=== PATIENT | female | born 1955 | race African-American/Black ===

== ENCOUNTER → 2023-10-10 09:37 | Outpatient (REF) | payer BC, SELFPAY | LOC: WDC 09:37 | PROVIDERS: ATTENDING PHYSICIAN Nurse Practitioner Family | DX: N64.4 Mastodynia (principal) | CPT/HCPCS: 76642 ==

== ENCOUNTER → 2023-11-10 12:36 | Outpatient (REF) | payer BC, SELFPAY | LOC: WDC 12:36 | PROVIDERS: ATTENDING PHYSICIAN Family Medicine | DX: Z12.31 Encounter for screening mammogram for malignant neoplasm of breast (principal) | CPT/HCPCS: 77063; 77067 ==

== ENCOUNTER → 2024-06-22 08:56 | Outpatient (REF) | payer MEDICARE, SELFPAY | LOC: HWRCS 08:56 | PROVIDERS: ATTENDING PHYSICIAN Internal Medicine Cardiovascular Disease; FAMILY PHYSICIAN Family Medicine | DX: R94.31 Abnormal electrocardiogram [ECG] [EKG] (principal); E66.01 Morbid (severe) obesity due to excess calories; Z01.818 Encounter for other preprocedural examination | CPT/HCPCS: 93306 ==